=== PATIENT | male | born 1960 | race Caucasian/White ===

== ENCOUNTER 2016-09-13 10:25 | Emergency (ER) | payer OTHER ==
[~2016-09-13] VITALS: Ht 172.7 cm; Wt 103.0 kg
[2016-09-13 10:28] VITALS: BP 186/100; PULSE 99; RESP 20; TEMP 97.8; O2SAT 96
[2016-09-13 10:57] LABS: AUTOMATED NEUTROPHIL # 3.4 TH/MM3 (1.8-7.7); BASOPHIL % 0.9 % (0.0-2.0); EOSINOPHIL # 0.1 TH/MM3 (0-0.4); EOSINOPHIL % 1.7 % (0.0-4.0); HEMATOCRIT 43.1 % (39.0-51.0); HEMO FLAGS DIFF FINAL; LYMPH % 24.6 % (9.0-44.0); LYMPHOCYTE # 1.3 TH/MM3 (1.0-4.8); MEAN CELL VOLUME 87.4 FL (80.0-100.0); MEAN CORPUSCULAR HEMOGLOBIN 28.5 PG (27.0-34.0); MEAN CORPUSCULAR HGB CONC 32.6 % (32.0-36.0); MONO % 7.1 % (0.0-8.0); NEUT % 65.7 % (16.0-70.0); PLATELET COUNT 198 TH/MM3 (150-450); RED BLOOD COUNT 4.92 MIL/MM3 (4.50-5.90); RED CELL DISTRIBUTION WIDTH 15.3 % (11.6-17.2); WHITE BLOOD COUNT 5.2 TH/MM3 (4.0-11.0)
[2016-09-13 11:05] LABS: PROTHROMBIN TIME - PATIENT 10.8 SEC (9.8-11.6)
[2016-09-13 11:22] LABS: ANION GAP 9 MEQ/L (5-15); BLOOD UREA NITROGEN 20 MG/DL (7-18); CHLORIDE 108 MEQ/L (98-107); CREATINE KINASE 255 U/L (39-308); GLOMERULAR FILTRATION RATE 77 ML/MIN (>89); POTASSIUM 4.2 MEQ/L (3.5-5.1); SODIUM (NA) 141 MEQ/L (136-145)
[2016-09-13] MEDS ORDERED: FISHCAP4 PO (11:23)
[2016-09-13] MEDS ORDERED: TAMS5CAP PO (11:23)
[2016-09-13] MEDS ORDERED: VITA1000 PO (11:23)
[2016-09-13] MEDS ORDERED: DILT30TA PO (11:23)
[2016-09-13] MEDS ORDERED: SODIUM CHLORIDE 0.9% FLUSH 10 ML FLUSH IVF PRN (11:45)
--- NOTE | 2016-09-13 11:57 | PD ---
HPI Chief Complaint: Neuro Symptoms/ Deficits Time Seen by Provider: 11:16 Travel History International Travel<30 days: No Contact w/Intl Traveler<30days: No Traveled to known affect area: No History of Present Illness HPI Patient is a 55-year-old male with history of diabetes controlled by diet, hypothyroidism, hyperlipidemia who presents to emergency room with complaints of amnesia. Patient reports that he went for a walk with his and his dog this morning, which that he can't remember this walk. Patient reports that he supposedly drove to work and was talking to his boss, remember his drive to work. Patient reports no recollection of the morning events, reports that everything feels like a fog to him. Patient reports that he feels fine, denies any lightheadedness or dizziness, denies any vision changes. Patient denies any chest pain or shortness of breath. Patient reports that he is scared as he may have had a TIA. Patient's reports that patient did complain of headache (pain behind his left eye) earlier this morning, patient reports complete resolution of the symptoms at this time. Patient denies any fall or trauma to the head or neck. Patient denies any use of drugs or alcohol, denies history of amnesia in the past PFSH Past Medical History Cardiovascular Problems: Yes (HTN) High Cholesterol: Yes Diabetes: Yes (METFORMIN) Patient Takes Glucophage: Yes Hypertension: Yes Thyroid Disease: Yes Tetanus Vaccination: Unknown Influenza Vaccination: No Past Surgical History Abdominal Surgery: Yes (gastic bypass surgery) Social History Alcohol Use: No Tobacco Use: No Substance Use: No Allergies-Medications (Allergen,Severity, Reaction): Coded Allergies: Penicillin (Verified Allergy, Unknown, 09/13/16) Reported Meds & Prescriptions Reported Meds & Active Scripts Active Reported Fish Oil + D3 (Fish Oil-Cholecalciferol) 1,200-1,000 Mg-Unit Cap 1 Cap PO DAILY Vitamin D-1000 (Cholecalciferol) 1,000 Unit Tab 1,000 Units PO DAILY Flomax (Tamsulosin HCl) 0.4 Mg Cap 0.4 Mg PO HS Diltiazem (Diltiazem HCl) 30 Mg Tab 30 Mg PO QID Review of Systems General / Constitutional: No: Fever Eyes: No: Visual changes HENT: Positive: Headaches Cardiovascular: No: Chest Pain or Discomfort Respiratory: No: Shortness of Breath Gastrointestinal: No: Abdominal Pain Genitourinary: No: Dysuria Musculoskeletal: No: Pain Skin: No Rash Neurologic: Positive: Headache, No: Weakness Psychiatric: No: Depression Endocrine: No: Polydipsia Hematologic/Lymphatic: No: Easy Bruising Physical Exam Narrative GENERAL: NAD, Nontoxic SKIN: Focused skin assessment warm/dry. HEAD: Atraumatic. Normocephalic. EYES: Pupils equal and round. No scleral icterus. No injection or drainage. ENT: No nasal bleeding or discharge. Mucous membranes pink and moist. NECK: Trachea midline. No JVD. CARDIOVASCULAR: Regular rate and rhythm. No murmur appreciated. RESPIRATORY: No accessory muscle use. Clear to auscultation. Breath sounds equal bilaterally. GASTROINTESTINAL: Abdomen soft, non-tender, nondistended. Hepatic and splenic margins not palpable. MUSCULOSKELETAL: No obvious deformities. No clubbing. No cyanosis. No edema. NEUROLOGICAL: Awake and alert. No obvious cranial nerve deficits. Motor grossly within normal limits. Normal speech. CN 2-12 grossly intact with no neurological deficits PSYCHIATRIC: Appropriate mood and affect; insight and judgment normal. Data Data Last Documented VS Vital Signs Date Time Temp Pulse Resp B/P Pulse Ox O2 Delivery O2 Flow Rate FiO2 09/13/16 11:17 97 Room Air 09/13/16 10:28 97.8 99 20 186/100 Orders Complete Blood Count With Diff (09/13/16 10:38) Basic Metabolic Panel (Bmp) (09/13/16 10:38) Ckmb (Isoenzyme) Profile (09/13/16 10:38) Troponin I (09/13/16 10:38) Prothrombin Time / Inr (Pt) (09/13/16 10:38) CKMB (09/13/16 10:45) CKMB% (09/13/16 10:45) Ct Brain W/O Iv Contrast(Rout) (09/13/16 11:38) Chest, Single Ap (09/13/16 11:38) Ecg Monitoring (09/13/16 11:38) Iv Access Insert/Monitor (09/13/16 11:38) Oximetry (09/13/16 11:38) Sodium Chloride 0.9% Flush (Ns Flush) (09/13/16 11:45) Drug Screen, Random Urine (09/13/16 11:39) Urinalysis - C+S If Indicated (09/13/16 11:39) Consult Neurology (09/13/16 ) (Hub Use Only)Inp Phy Cons/Ref (09/13/16 ) Labs Laboratory Tests Test 09/13/16 10:45 White Blood Count 5.2 TH/MM3 Red Blood Count 4.92 MIL/MM3 Hemoglobin 14.0 GM/DL Hematocrit 43.1 % Mean Corpuscular Volume 87.4 FL Mean Corpuscular Hemoglobin 28.5 PG Mean Corpuscular Hemoglobin 32.6 % Concent Red Cell Distribution Width 15.3 % Platelet Count 198 TH/MM3 Mean Platelet Volume 8.4 FL Neutrophils (%) (Auto) 65.7 % Lymphocytes (%) (Auto) 24.6 % Monocytes (%) (Auto) 7.1 % Eosinophils (%) (Auto) 1.7 % Basophils (%) (Auto) 0.9 % Neutrophils # (Auto) 3.4 TH/MM3 Lymphocytes # (Auto) 1.3 TH/MM3 Monocytes # (Auto) 0.4 TH/MM3 Eosinophils # (Auto) 0.1 TH/MM3 Basophils # (Auto) 0.0 TH/MM3 CBC Comment DIFF FINAL Differential Comment Prothrombin Time 10.8 SEC Prothromb Time International 1.0 RATIO Ratio Sodium Level 141 MEQ/L Potassium Level 4.2 MEQ/L Chloride Level 108 MEQ/L Carbon Dioxide Level 24.0 MEQ/L Anion Gap 9 MEQ/L Blood Urea Nitrogen 20 MG/DL Creatinine 1.01 MG/DL Estimat Glomerular Filtration 77 ML/MIN Rate Random Glucose 108 MG/DL Calcium Level 8.9 MG/DL Total Creatine Kinase 255 U/L Creatine Kinase MB 1.0 NG/ML Troponin I LESS THAN 0.02 NG/ML MDM Medical Decision Making Medical Screen Exam Complete: Yes Emergency Medical Condition: Yes Interpretation(s) Vital Signs Date Time Temp Pulse Resp B/P Pulse Ox O2 Delivery O2 Flow Rate FiO2 09/13/16 11:17 97 Room Air 09/13/16 10:28 97.8 99 20 186/100 96 Room Air Differential Diagnosis Differential includes TIA, transient global amnesia, electrolyte abnormality, seizure Narrative Course 55-year-old male who presents to emergency room with complaints of generalized confusion. he reports that he doesn't remember events of this morning, reports that he ended up at work and was talking to his boss and wasn't sure how he ended up at work. Patient was brought to ER by a co-worker. Patient with no neurological deficits while in the ER. Plan to obtain lab work and ct of head. Will call neurologist after workup for further recommendations Vital Signs Date Time Temp Pulse Resp B/P Pulse Ox O2 Delivery O2 Flow Rate FiO2 09/13/16 11:17 97 Room Air 09/13/16 10:28 97.8 99 20 186/100 96 Room Air Laboratory Tests Test 09/13/16 10:45 White Blood Count 5.2 TH/MM3 (4.0-11.0) Red Blood Count 4.92 MIL/MM3 (4.50-5.90) Hemoglobin 14.0 GM/DL (13.0-17.0) Hematocrit 43.1 % (39.0-51.0) Mean Corpuscular Volume 87.4 FL (80.0-100.0) Mean Corpuscular Hemoglobin 28.5 PG (27.0-34.0) Mean Corpuscular Hemoglobin 32.6 % Concent (32.0-36.0) Red Cell Distribution Width 15.3 % (11.6-17.2) Platelet Count 198 TH/MM3 (150-450) Mean Platelet Volume 8.4 FL (7.0-11.0) Neutrophils (%) (Auto) 65.7 % (16.0-70.0) Lymphocytes (%) (Auto) 24.6 % (9.0-44.0) Monocytes (%) (Auto) 7.1 % (0.0-8.0) Eosinophils (%) (Auto) 1.7 % (0.0-4.0) Basophils (%) (Auto) 0.9 % (0.0-2.0) Neutrophils # (Auto) 3.4 TH/MM3 (1.8-7.7) Lymphocytes # (Auto) 1.3 TH/MM3 (1.0-4.8) Monocytes # (Auto) 0.4 TH/MM3 (0-0.9) Eosinophils # (Auto) 0.1 TH/MM3 (0-0.4) Basophils # (Auto) 0.0 TH/MM3 (0-0.2) CBC Comment DIFF FINAL Differential Comment Prothrombin Time 10.8 SEC (9.8-11.6) Prothromb Time International 1.0 RATIO Ratio Sodium Level 141 MEQ/L (136-145) Potassium Level 4.2 MEQ/L (3.5-5.1) Chloride Level 108 MEQ/L (98-107) Carbon Dioxide Level 24.0 MEQ/L (21.0-32.0) Anion Gap 9 MEQ/L (5-15) Blood Urea Nitrogen 20 MG/DL (7-18) Creatinine 1.01 MG/DL (0.60-1.30) Estimat Glomerular Filtration 77 ML/MIN (>89) Rate Random Glucose 108 MG/DL (74-106) Calcium Level 8.9 MG/DL (8.5-10.1) Total Creatine Kinase 255 U/L (39-308) Creatine Kinase MB 1.0 NG/ML (0.5-3.6) Troponin I LESS THAN 0.02 NG/ML (0.02-0.05) Last Impressions Head CT 09/13/[id number] Signed Impressions: Service Date/Time: Tuesday, September 13, 2016 12:11 - CONCLUSION: No acute disease. Jadon Montoya MD Chest X-Ray [id number]/13/[id number] Signed Impressions: Service Date/Time: Tuesday, September 13, 2016 12:35 - CONCLUSION: Mild compensated cardiomegaly. Clifford Sharma MD FACR Case reviewed with Dr. Mendes who will see patient in the ER Patient was seen by Dr. Mendes in the ER. Patient with most likely transient global amnesia and not TIA. Patient safe to be discharged to home with outpatient referral. Dr. Mendes will see patient in office and will obtain outpatient EEG and MRI. Diagnosis Primary Impression: Global amnesia Referrals: Butch Mendes MD Patient Instructions: General Instructions Departure Forms: Tests/Procedures, Work Release Enter return to work date: Sep 16, 2016 Additional Instructions: Please provide patient with a copy of his lab work and studies at discharge Please call neurologist first thing in the morning for earliest follow up as your will need MRI and EEG performed as outpatient Return to ER if symptoms return Return to ER if symptoms worsen or persist. Please follow up with your primary care doctor Disposition: 01 DISCHARGE HOME Condition: Stable Eladia Knowles DO Sep 13, 2016 11:57
--- NOTE | 2016-09-13 12:34 | RADRPT ---
EXAM DATE/TIME: 09/13/2016 12:11 [facility] COMPARISON: No previous studies available for comparison. INDICATIONS : Memory loss today. RADIATION DOSE: 38.76 CTDIvol (mGy) MEDICAL HISTORY : Hypertension. Diabetes, thyroid disease SURGICAL HISTORY : None. ENCOUNTER: Initial ACUITY: 1 day PAIN SCALE: 3/10 LOCATION: cranial TECHNIQUE: Multiple contiguous axial images were obtained of the head. Using automated exposure control and adj ustment of the mA and/or kV according to patient size, radiation dose was kept as low as reasonably a chievable to obtain optimal diagnostic quality images. DICOM format image data is available electro nically for review and comparison. FINDINGS: CEREBRUM: The ventricles are normal for age. No evidence of midline shift, mass lesion, hemorrhage or acute in farction. No extra-axial fluid collections are seen. POSTERIOR FOSSA: The cerebellum and brainstem are intact. The 4th ventricle is midline. The cerebellopontine angle i s unremarkable. EXTRACRANIAL: The visualized portion of the orbits is intact. SKULL: The calvaria is intact. No evidence of skull fracture. CONCLUSION: No acute disease. Jadon Montoya MD on September 13, 2016 at 12:31 Board Certified Radiologist. This report was verified electronically.
--- NOTE | 2016-09-13 13:27 | RADRPT ---
EXAM DATE/TIME: 09/13/2016 12:35 [facility] COMPARISON: No previous studies available for comparison. INDICATIONS : Possible cerebrovascular accident. Memory loss and headache. MEDICAL HISTORY : Hypertension. Diabetes. Thyroid disease. SURGICAL HISTORY : None. ENCOUNTER: Initial ACUITY: 1 day PAIN SCORE: 0/10 LOCATION: Bilateral chest FINDINGS: There is mild compensated cardiomegaly without infiltrate or failure. The portion of the bony skeleto n visualized is unremarkable. CONCLUSION: Mild compensated cardiomegaly. Clifford Sharma MD FACR on September 13, 2016 at 13:25 Board Certified Radiologist. This report was verified electronically.
[2016-09-13 16:16] LABS: BLOOD, URINE NEG (NEG); COMMENT (UR) CULT NOT INDICATED; CULTURE IF INDICATED CULT NOT INDICATED; GLUCOSE,URINE NEG (NEG); KETONE, URINE NEG (NEG); MUCUS URINE FEW /lpf (OCC); NITRITE,URINE NEG (NEG); PH, URINE 5.5 (5.0-8.5); URINE COLOR YELLOW (YELLW/STRAW)
[2016-09-13 16:22] LABS: AMPHETAMINE, URINE NEG (NEG); BARBITURATES, URINE NEG (NEG); COCAINE, URINE NEG (NEG)
--- NOTE | 2016-09-15 13:03 | MB ---
cc: LUMA LEE M.D. Corrected Copy: 09/23/16 DATE OF CONSULTATION 09/13/2016 REASON FOR CONSULTATION He is a 55-year-old seen in neurological evaluation in regards to a transient neurological disturbance. HISTORY OF THE PRESENT ILLNESS He has come to the emergency room on a couple of occasions. I spoke to the patient's and the patient himself. The patient woke up and everything was okay. There was nothing unusual during the night. This morning he went for his usual walk with his and remembered that, but when he arrived home he was getting ready to go to work and seemed to be acting confused. He was repeating himself and asking the some inappropriate questions as he was inquiring about his own telephone and shoes, etc. He did not want to come the emergency room. He remembered about driving to work though he seemed to be a bit confused as his told him told him. He said at work, his coworkers noticed the problem and he was also not acting quite appropriately. First in the hospital he did not seem to have recollection of the events but now he is recalling most of the event that happened this morning. He has a history of hypertensive disease. He is reporting borderline blood sugars. No major stress. NEUROLOGICAL EXAMINATION The neurological examination is completely normal. He is alert, pleasant, in good spirits. The ocular movements and visual stacy were full. Mentation is adequate. No facial weakness. Speech is normal. Reflexes were trace versus absent throughout and plantar response was flexor. I did not ambulate him but reportedly he is ambulating well. The data was reviewed. Essentially unremarkable. ASSESSMENT Transient global amnesia. I suggest for him to start on a baby aspirin daily. As far as I know he can be discharged home and he will call our office for outpatient evaluation. We plan on obtaining an EEG, MRI brain, MRA head and back as an outpatient. The patient and understand this and I spoke to the ED physician. Thank you for asking us to assist in his care. MD DULCE Teixeira/JASBIR /3:25 PM /3:49 PM
== END 2016-09-13 16:01 | disposition home or self-care (01) ==
LOC: NEPC 10:25
DX: G45.4 Transient global amnesia (principal); I51.7 Cardiomegaly; R51 Headache; I10 Essential (primary) hypertension; E78.00 Pure hypercholesterolemia, unspecified; E11.9 Type 2 diabetes mellitus without complications; E07.9 Disorder of thyroid, unspecified; Z79.899 Other long term (current) drug therapy; Z88.0 Allergy status to penicillin
CPT/HCPCS: 70450; 71010; 80048; 80307; 81001; 82550; 82552; 84484; 85025; 85610; 99285